=== PATIENT | male | born 1955 | race Caucasian/White ===

== ENCOUNTER → 2018-05-29 | Day surgery (SDC) | payer OTHER ==
[~2018-05-29] MED LIST: ACTOS PO; AMLODIPINE-BEN1 EAC4 PO; ASPIR 8181 MG PO; ATORVASTATIN CA20 MG PO; FENTANYL CITRATE/PF 100MCG/2 ML INJ ONE; FLUOXETINE HCL20 MG PO; HYOSCYAMINE SULFATE 0.5 MG/ML INJ ONE; INSULIN REGULAR, HUMAN 100 UNIT/1 ML 3ML VIAL ONE; MIDAZOLAM HCL 2 MG/2 ML VIAL ONE; PROPOFOL IV EMULSION 10 MG/ML 50 ML VIAL ONE; XIGDUO PO
--- OUTSIDE RECORDS SUMMARY | 2018-05-29 06:14 | XMS REPORT | Encounter Summary ---
Author Organization Unknown Address [address] [place] [address] Phone [phone] Care Team Providers Care Injection Molding Operator Name Role Phone Ferdinand Ko MD 3 [phone] Reason for Visit Bilateral Medical Complaint Instructions 1. Allergic conjunctivitis adenovirus Ag, Immunoassay azelastine 0.05 % eye drops 2. Type 2 diabetes mellitus without complication type 2 diabetes: care instructions 3. Essential hypertension high blood pressure: care instructions 4. Hyperlipidemia high cholesterol: care instructions 5. Body mass index 30+ - obesity Discussion Note Pt is in NAD; Verbalizes understanding of all instructions with no questions at this time. Plan of Care Patient Instructions Proper hand hygiene after contact with eyes, do not share pillows/clothing. Do not not wear any contacts and or makeup for the next 7 days. Use a different tissue to clean each eye. I recommend hand washing. Use eye drops (azelastine 0.05 %) as directed Take medications as prescribed. Follow up with your PCP or cloth napping supervisor within 2-3 days if symptoms worsen as discussed. Report to ER in case of emergency, sharp eye pain or vision loss.Recommend monitor BP and blood sugars at home and document, bring BP and blood sugar log to PCP for review. Recommend follow a low sodium/fat and carb diet and exercise 30-45 mins/d 3-4 days a week. Reminders Provider Appointments None recorded. Lab Adenovirus Ag, Immunoassay 09/23/2017 [facility] Referral None recorded. Procedures None recorded. Surgeries None recorded. Imaging None recorded. Medications Name Start Date amlodipine 5 mg-benazepril 40 mg capsule atorvastatin 20 mg tablet azelastine 0.05 % eye drops INSTILL 1 DROP INTO AFFECTED EYE(S) BY OPHTHALMIC ROUTE 2 TIMES PER DAY PRN WATERY DRAINAGE/ITCHING/IRRITATION. Flucelvax Quad 9288-3194 (PF) 60 mcg (15 mcg x 4)/0.5 mL IM syringe TO BE ADMINISTERED BY PHARMACIST FOR IMMUNIZATION fluoxetine 20 mg tablet OneTouch Verio strips pioglitazone 30 mg tablet Xigduo XR 5 mg-1,000 mg tablet,extended release Medications Administered None recorded. Vitals Height Weight BMI Blood Pressure 6 ft 238 lbs 32.3 kg/m2 120/78 mm[Hg] Lab Results Date Name Specimen Result Interpretation Description Value Range Status Address Adenovirus Ag, Immunoassay Result negative [facility]: [address] [place] [address] Swab Location Left Conjunctiva [facility]: [address] [place] [address] Allergies Code Code System Name Reaction Severity Status Onset NKDA Problems Name Status Onset Date Source Type 2 Diabetes Mellitus without Complication Active 09/23/2017 Hyperlipidemia Active 09/23/2017 Body Mass Index 30+ - Obesity Active 09/23/2017 Allergic Conjunctivitis Active 09/23/2017 Essential Hypertension Active 09/23/2017 Procedures Date Name Performed by Hernia Repair W/mesh Information not available Cholecystectomy Information not available Appendectomy Information not available Vaccine List Vaccine Type influenza, unspecified formulation 03/26/2017 Tdap 07/04/2012 Social History Smoking Status Never Smoker Past Encounters 09/23/2017 Allergic Conjunctivitis; Type 2 Diabetes Mellitus without Complication; Essential Hypertension; Hyperlipidemia; Body Mass Index 30+ - Obesity 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 History of Present Illness Eye Complaint Reported By: Patient HPI: Location: bilateral. Severity: no pain. Duration ; B/L eye injected, irritated and itchy x 2 days and watery drainage and matting x 2 weeks. Onset/Timing: first episode, gradual onset. Context no previous history of Iritis, no previous history of recurrent corneal erosion, no one else with similar symptoms. Modifying factors nothing gives relief. Associated Symptoms: vision intact, no sensitivity to light, no foreign body sensation in eyes, no pain in the eyes, no pain with eye movement, no headache, no fever/chills, no muscle aches, watery discharge from the eyes; B/L eye injected, irritated and itchy Review of Systems:ROS as noted in the HPI Review of Systems Basic Reported By: Patient Physical Exam Adult Basic, Adult Male Complete Reported By: Patient Constitutional: General Appearance: obese. Level of Distress: NAD Psychiatric: Mental Status: active and alert. Orientation: to time, to place, to person Eyes: Lids and Conjunctivae: injected, discharge. Pupils: PERRLA. Corneas: grossly intact. Vision: peripheral vision grossly intact, distance acuity: left, uncorrected: 20/30, distance acuity: right, uncorrected: 20/30 [facility]-P[facility]-Icgug-Throat: Ears: no lesions on external ear, no outer ear tenderness, EACs clear, TMs clear. Nose: no lesions on external nose, nares patent, no septal deviation, nasal passages clear, no sinus tenderness, no nasal discharge. Lips, Teeth, and Gums: no mouth or lip ulcers, no bleeding gums, normal dentition. Oropharynx: moist mucous membranes, no erythema, no exudates, tonsils not enlarged Neck: Lymph Nodes: no cervical LAD. Thyroid: no enlargement Lungs: Respiratory effort: no tachypnea Cardiovascular: Heart Auscultation: no murmurs Skin: Inspection and palpation: no rash
--- OUTSIDE RECORDS SUMMARY | 2018-05-29 06:14 | XMS REPORT | Continuity of Care Document ---
Author Author [facility] Interface Address Unknown Phone Unavailable Problems Problem Status Onset Date Classification Date Reported Comments Source Feeling feverish 11/18/2017 Diagnosis 11/18/2017 [facility] Acute upper respiratory infection 11/18/2017 Diagnosis 11/18/2017 [facility] Acute sinusitis 11/18/2017 Diagnosis 11/18/2017 [facility] Body mass index 30+ - obesity 11/18/2017 Diagnosis 11/18/2017 [facility] Essential hypertension 09/23/2017 Diagnosis 09/23/2017 [facility] Type 2 diabetes mellitus without complication 09/23/2017 Diagnosis 09/23/2017 [facility] Allergic conjunctivitis 09/23/2017 Diagnosis 09/23/2017 [facility] Type 2 Diabetes Mellitus without Complication 09/23/2017 Problem 11/18/2017 [facility] Hyperlipidemia 09/23/2017 Problem 11/18/2017 [facility] Body Mass Index 30+ - Obesity 09/23/2017 Problem 11/18/2017 [facility] Allergic Conjunctivitis 09/23/2017 Problem 11/18/2017 [facility] Essential Hypertension 09/23/2017 Problem 11/18/2017 [facility] Medications Medication Details Route Status Patient Instructions Ordering Provider Order Date Source Amlodipine 5 MG / Benazepril hydrochloride 40 MG Oral Capsule amlodipine 5 mg-benazepril 40 mg capsule Active [facility] atorvastatin 20 MG Oral Tablet atorvastatin 20 mg tablet Active [facility] Azelastine hydrochloride 0.5 MG/ML Ophthalmic Solution azelastine 0.05 % eye drops INSTILL 1 DROP INTO AFFECTED EYE(S) TWICE A DAY NEEDED FOR WATERY DRAINAGE, ITCHING,OR IRRITATION Active [facility] 0.5 ML influenza A virus A/[place] (H1N1) antigen 0.03 MG/ML / influenza A virus A/ (H3N2) antigen 0.03 MG/ML / influenza B virus B/[place] antigen 0.03 MG/ML / influenza B virus B/ antigen 0.03 MG/ML Prefilled Syringe [Flucelvax Quadrivalent 8785-3234] Flucelvax Quad 7566-1185 (PF) 60 mcg (15 mcg x 4)/0.5 mL IM syringe TO BE ADMINISTERED BY PHARMACIST FOR IMMUNIZATION Active [facility] Fluoxetine 20 MG Oral Tablet fluoxetine 20 mg tablet Active [facility] OneTouch Verio strips OneTouch Verio strips Active [facility] pioglitazone 30 MG Oral Tablet pioglitazone 30 mg tablet Active [facility] 24 HR dapagliflozin 5 MG / Metformin hydrochloride 1000 MG Extended Release Oral Tablet [Xigduo] Xigduo XR 5 mg-1,000 mg tablet,extended release Active [facility] Amoxicillin 875 MG / Clavulanate 125 MG Oral Tablet [Augmentin] Augmentin 875 mg-125 mg tablet Take 1 tablet every 12 hours by oral route for 7 days. Active [facility] Fluticasone propionate 0.05 MG/ACTUAT Metered Dose Nasal Rufe fluticasone 50 mcg/actuation nasal spray,suspension Rufe 1 spray twice a day by intranasal route for 14 days. Active [facility] Sulfacetamide Sodium 100 MG/ML Ophthalmic Solution sulfacetamide sodium 10 % eye drops Active [facility] benzonatate 100 MG Oral Capsule [Tessalon Perles] Tessalon Perles 100 mg capsule Take 1 capsule 3 times a day by oral route as needed. Active [facility] Allergies, Adverse Reactions, Alerts Substance Category Reaction Severity Reaction type Status Date Reported Comments Source Immunizations Immunization Date Given Site Status Last Updated Comments Source influenza, unspecified formulation 03/26/2017 completed [facility] Tdap 07/04/2012 completed [facility] Results Order Name Results Value Reference Range Date Interpretation Comments Source RESULT negative 11/18/2017 [facility] SWAB LOCATION Left and Right tonsillar pillars 11/18/2017 [facility] Influenza A negative 11/18/2017 [facility] Influenza B negative 11/18/2017 [facility] Adenovirus Ag [Presence] in Unspecified specimen by Immunoassay RESULT negative 09/23/2017 [facility] Adenovirus Ag [Presence] in Unspecified specimen by Immunoassay SWAB LOCATION Left Conjunctiva 09/23/2017 [facility] Vital Signs Vital Sign Value Date Comments Source Diastolic (mm Hg) 82 11/18/2017 [facility] Height 72 11/18/2017 [facility] Systolic (mm Hg) 118 11/18/2017 [facility] Weight 225 11/18/2017 [facility] Diastolic (mm Hg) 78 09/23/2017 [facility] Height 72 09/23/2017 [facility] Systolic (mm Hg) 120 09/23/2017 [facility] Weight 238 09/23/2017 [facility] Encounters Location Location Details Encounter Type Encounter Number Reason For Visit Attending Provider ADM Date DC Date Status Source [place] - [facility] - [id number] [facility]: [address] [place] [address], Ph. [id number] Natasha Hand 09/23/2017 [facility] [place] - [facility] [id number]: [address] [place] [address], Ph. [id number] Anahy Leyva 11/18/2017 [facility] Procedures Procedure Code Date Perfomer Comments Source Hernia Repair W/mesh [id number] [facility] Cholecystectomy [facility] Appendectomy [facility]
--- OUTSIDE RECORDS SUMMARY | 2018-05-29 06:14 | XMS REPORT | Encounter Summary ---
Author Organization Unknown Address [address] [place] [address] Phone [phone] Care Team Providers Care Electric Motor Repairer Name Role Phone Ferdinand Ko MD 3 [phone] Reason for Visit Medical Complaint Instructions 1. Acute sinusitis sinusitis: care instructions fluticasone 50 mcg/actuation nasal spray,suspension Augmentin 875 mg-125 mg tablet 2. Acute upper respiratory infection upper respiratory infection (cold): care instructions Tessalon Perles 100 mg capsule rapid strep group A, throat 3. Feeling feverish rapid flu (A+B) 4. Body mass index 30+ - obesity A healthy lifestyle: care instructions Discussion Note: None recorded. Plan of Care Patient Instructions See care instructions provided. Reminders Provider Appointments None recorded. Lab Rapid Flu (A+B) 11/18/2017 [facility] Rapid Strep Group a, Throat 11/18/2017 [facility] Referral None recorded. Procedures None recorded. Surgeries None recorded. Imaging None recorded. Medications Name Start Date amlodipine 5 mg-benazepril 40 mg capsule atorvastatin 20 mg tablet Augmentin 875 mg-125 mg tablet Take 1 tablet every 12 hours by oral route for 7 days. azelastine 0.05 % eye drops INSTILL 1 DROP INTO AFFECTED EYE(S) TWICE A DAY NEEDED FOR WATERY DRAINAGE, ITCHING,OR IRRITATION Flucelvax Quad 8819-7282 (PF) 60 mcg (15 mcg x 4)/0.5 mL IM syringe TO BE ADMINISTERED BY PHARMACIST FOR IMMUNIZATION fluoxetine 20 mg tablet fluticasone 50 mcg/actuation nasal spray,suspension [place] 1 spray twice a day by intranasal route for 14 days. OneTouch Verio strips pioglitazone 30 mg tablet sulfacetamide sodium 10 % eye drops Tessalon Perles 100 mg capsule Take 1 capsule 3 times a day by oral route as needed. Xigduo XR 5 mg-1,000 mg tablet,extended release Medications Administered None recorded. Vitals Height Weight BMI Blood Pressure 6 ft 225 lbs 30.5 kg/m2 118/82 mm[Hg] Lab Results Date Name Specimen Result Interpretation Description Value Range Status Address Rapid Strep Group a, Throat Result negative [facility]: [facility] Swab Location Left and Right tonsillar pillars [facility]: [facility] Rapid Flu (A+B) Influenza a negative [facility]: [facility] Influenza B negative [facility]: [facility] Allergies Code Code System Name Reaction Severity [...] History Smoking Status Never Smoker Past Encounters 11/18/2017 Acute Sinusitis; Acute Upper Respiratory Infection; Feeling Feverish; Body Mass Index 30+ - Obesity [facility]: [address] [place] [address], Ph. History of Present Illness [id number]-Mefkluj Reported By: Patient HPI: Location: head/sinuses. Quality: productive cough, sore throat, colored phlegm, nasal/sinus congestion. Duration: days. Context: no sick contacts, no foreign travel, non-smoker. Modifying factors: OTC medication; sulfacetamide eye drops prescribed by tele doc for conjunctivitis. Associated Symptoms: no shortness of breath, no wheezing, no change in number of pillows needed to sleep at night, no sweats, no significant weight gain, no significant weight loss, no morning cough, no sore throat, no vomiting, no diarrhea, no rash, no nausea, no fever, no muscle aches, no headache, yellow sputum, fever Review of Systems:ROS as noted in the HPI Review of Systems Basic Reported By: Patient Physical Exam Adult Basic, Adult Male Complete Reported By: Patient Constitutional: General Appearance: healthy-appearing, well-nourished, well-developed. Level of Distress: NAD. Ambulation: ambulating normally Psychiatric: Mental Status: active and alert. Orientation: to time, to place, to person Eyes: Lids and Conjunctivae: non-injected, no discharge, no pallor Zzw-Lmva-Rseud-Throat: Ears: no lesions on external ear, no outer ear tenderness, EACs clear, TM opacified, middle ear fluid. Hearing: no hearing loss. Nose: no lesions on external nose, no septal deviation, nasal obstruction, sinus tenderness, nasal discharge, nasal discharge--purulent. Lips, Teeth, and Gums: no mouth or lip ulcers, no bleeding gums, normal dentition. Oropharynx: moist mucous membranes, no exudates, tonsils not enlarged, erythema Lungs: Respiratory effort: no dyspnea, no tachypnea, no use of accessory muscles, no intercostal retractions. Auscultation: breath sounds normal Cardiovascular: Heart Auscultation: RRR, no murmurs
[2018-05-29 11:30] VITALS: BP 125/90
--- NOTE | 2018-05-29 15:09 | Operative Report ---
DATE OF PROCEDURE: May 29, 2018 REFERRING PHYSICIAN: Dr. Ferdinand Ko PROCEDURE PERFORMED: Colonoscopy and polypectomy. INDICATIONS FOR COLONOSCOPY: Surveillance colonoscopy. History of colon polyps. MEDICATION: Patient was done under MAC. Please see anesthesiologist's note. PROCEDURE: With the patient in the left lateral decubitus position, the flexible fiberoptic Olympus colonoscope was inserted into the rectum with ease and advanced all the way to the cecum. Mucosa overlying the cecum appeared to be within normal limits. One polyp was hot biopsied from the proximal ascending colon. The rest of the ascending, transverse and descending appeared to be within normal limits. One polyp was snared from the sigmoid colon. The rest of the sigmoid colon appeared to be within normal limits. Two polyps were hot biopsied from the rectum. The scope was then retroflexed into the distal rectum, and small internal hemorrhoids were noted, none of which was actively bleeding. The scope was then straightened out. It was subsequently withdrawn. Patient tolerated the procedure well. IMPRESSION 1. Ascending colon polyp, hot biopsied. 2. Sigmoid colon polyp, snared. 3. Rectal polyps times 2, hot biopsied. 4. Internal hemorrhoids, none actively bleeding. PLAN: Follow up histology. Initiate high-fiber, low-fat diet. Initiate high-fiber supplement. Patient will need a followup colonoscopy in 3 years. Job#: [id number] cc:FERDINAND KO MD
== END | disposition home or self-care (01) ==
LOC: ENDO 06:12
PROVIDERS: ATTEND Internal Medicine Gastroenterology
DX: Z09 Encounter for follow-up examination after completed treatment for conditions other than malignant neoplasm (principal); D12.5 Benign neoplasm of sigmoid colon; K62.1 Rectal polyp; K64.8 Other hemorrhoids; I10 Essential (primary) hypertension; E78.5 Hyperlipidemia, unspecified; E11.9 Type 2 diabetes mellitus without complications; Z01.810 Encounter for preprocedural cardiovascular examination; Z79.82 Long term (current) use of aspirin; Z79.84 Long term (current) use of oral hypoglycemic drugs; Z68.31 Body mass index [BMI] 31.0-31.9, adult
CPT/HCPCS: 36415; 45384; 45385; 82948; 93005; J1980; J2250; 45378

== ENCOUNTER → 2020-06-04 | Day surgery (SDC) | payer MEDICARE, OTHER ==
[2020-05-30 12:05] LABS: BASOPHILS # (AUTO) 0.1 (0.0-0.1); BASOPHILS % 0.8 % (0.0-1.0); EOSINOPHILS # (AUTO) 0.2 (0.0-0.4); EOSINOPHILS % 2.6 % (0.0-6.0); HEMOGLOBIN 15.3 g/dL (14.0-18.0); LYMPHOCYTES % 38.8 % (18.0-39.1); MEAN CORPUSCULAR HEMOGLOBIN 29.7 pg (28-32); MEAN CORPUSCULAR HGB CONC 32.6 g/dL (31-35); MEAN CORPUSCULAR VOLUME 91.1 fL (81-99); MONOCYTES # (AUTO) 0.8 (0.2-0.8); MONOCYTES % 9.7 % (4.4-11.3); NEUTROPHILS # (AUTO) 3.7 (2.1-6.9); NEUTROPHILS % 47.7 % (38.7-80.0); PLATELET COUNT 222 x10e3/uL (140-360); RED BLOOD COUNT 5.16 x10e6/uL (4.3-5.7); RED CELL DISTRIBUTION WIDTH 13.2 % (11.7-14.4)
[2020-05-30 12:30] LABS: ALANINE AMINOTRANSFERASE 31 IU/L (0-55); ALBUMIN 4.2 g/dL (3.5-5.0); ALBUMIN/GLOBULIN RATIO 1.5 (0.8-2.0); ALKALINE PHOSPHATASE 39 IU/L (40-150); ANION GAP 17.6 mmol/L (8-16); BLOOD UREA NITROGEN 13 mg/dL (7-26); BUN/CREATININE RATIO 11 (6-25); CALCIUM 9.1 mg/dL (8.4-10.2); CARBON DIOXIDE 25 mmol/L (22-29); CHLORIDE 104 mmol/L (98-107); CREATININE, SERUM 1.14 mg/dL (0.72-1.25); EST GLOMERULAR FILTRATION RATE > 60 ML/MIN (60-); GLUCOSE 140 mg/dL (74-118); POTASSIUM 4.6 mmol/L (3.5-5.1); SODIUM 142 mmol/L (136-145)
[2020-06-04] VITALS (13 sets, daily range): BP systolic 114–158; BP diastolic 70–82
[~2020-06-04] VITALS: Ht 182.9 cm; Wt 103.4 kg
[~2020-06-04] MED LIST changes: +ALPRAZOLAM 0.5 MG TAB ONE; +ASPIRIN 325 MG TAB ONE; +BIVALRIUDIN 250 MG/VIAL VIAL IV ONE; +DIPHENHYDRAMINE HCL 25 MG CAP ONE; +HEPARIN SOD/SOD CHLORIDE 2,000 ML ONE; -HYOSCYAMINE SULFATE 0.5 MG/ML INJ ONE; -INSULIN REGULAR, HUMAN 100 UNIT/1 ML 3ML VIAL ONE; +IOPAMIDOL 370 MG/ML 200 ML INFUS..BTL INJ ONE; +LIDOCAINE HCL 2% LOCAL 20 ML VIAL ONE; +PIOGLITAZONE HC45 MG PO; +PRASUGREL 10 MG TAB ONE; -PROPOFOL IV EMULSION 10 MG/ML 50 ML VIAL ONE; +SODIUM CHLORIDE 0.9% 1000ML 1,000 ML ONE; +SODIUM CHLORIDE 0.9% 50ML 50 ML ONE; +VERAPAMIL HCL 2.5 MG/ML 2 ML VIAL ONE; +VITAMIN B-121000 MCG PO; +VITAMIN D3 PO; +XIGDUO XR 5 MG1 EAC1 PO
--- NOTE | 2020-06-04 13:13 | NUR ---
1313p Report form Josefina SLATER to #[id number]. Identiferx2. Alert oriented and appropriate, PERRLA, respirations even and unlabored to room air. Pulses x4 extremities equal and palpable . Cap fill brisk < 3 sec. + neurovascular function of right wrist/hand w/ TR Band present. No s/s of swelling or discolor at site. VS trend reviewed and medications given. TR band down at 1500pm at bedside.Dc home scheduled 1800pm. Skin warm and dry integrity appears intact in general. IV left hand presents healthy left forearm Angiomax till completed. w/o s/s of infiltration or complaint. Abdomen soft and supple. pt offered toileting, denies need to urinate or defecate. Resting with HOB elevated approx 30o. Personal affects with patient. Pt verbalizes understanding of POC. Educated training consultant light use. bed low and locked, side rails up x2 and call light at sie Reattched to monitor NSR,no active CP or SOB. Pt using personal mask for COVID-19 mitigation. transfer of care -ds/rn
--- NOTE | 2020-06-04 15:00 | NUR ---
1500p RADIAL Compression removal: Initial Cuff volume 13cc 1500p -3 cc Removed No hematoma/bleeding noted with normal neurovascular function. 1515 -5cc Removed No hematoma/ bleeding noted with normal neurovascular function. 1530 -5cc Removed No hematoma/bleeding noted with normal neurovascular function. Air removal completed. Stasis achieved sterile 2x2,Tegaderm, Coban dressing No hematoma, bleeding noted with normal neurovascular function. Pt instructed on POC. Ds/Rn
--- NOTE | 2020-06-04 17:59 | NUR ---
1800p pt meets discharge criteria. VS wnl, alert and oriented. Pt and Family Understands discharge instruction. Overall general assess w/o gross outliers. Skin warm, dry, and intact. Right radial dressing soft w/o s/s of hematoma. + neurovascular function of right hand present. IV removed and appears distal tip is intact, Jasmin RN,staff member verifying. Pt maintains mask on for COVID 19 precautions being taken by wheel chair to awaiting car. Transfers w/o gross distress with discharge paperwork in hand.-ds/rn
--- NOTE | 2020-06-05 09:41 | Operative Report ---
DATE OF PROCEDURE: 06/04/2020 SURGEON: Mark Rendon MD INDICATIONS: Coronary artery disease, angina, and abnormal stress test. PROCEDURES PERFORMED: 1. Ultrasound-guided access in the right radial artery with sheath placement. 2. Left heart catheterization, selective coronary angiography. 3. Conscious sedation, 65 minutes. 4. Stent placement to the proximal circumflex artery. 5. Deployment of right wrist TR band. COMPLICATIONS: None. BLOOD LOSS: Minimal. RECOMMENDATIONS: Dual antiplatelet therapy for at least 6 months. DESCRIPTION OF PROCEDURE: Access was obtained in the right radial artery using ultrasound guidance. A 5-Arabic sheath was placed. Coronary angiography demonstrated patent left main, left anterior descending artery, moderate 30% to 50% diffuse luminal irregularities. Right coronary artery had similar disease. Proximal circumflex 80%, mid circumflex 50% stenosis. LV end-diastolic pressure of 18. No gradient across the aortic valve on pullback. A decision was made to intervene on the left circumflex artery. The patient received intravenous Angiomax and oral prasugrel and aspirin for anticoagulation. The left main was cannulated using ERAD 5-Arabic guiding catheter. Short Runthrough wire was advanced for support. Primary stent in the proximal circumflex artery. A 3.0 x 12 Resolute Jonny deployed at 16 atmospheres. Excellent end result. Less than 10% residual stenosis. SIXTO-3 flow. No complications. Wire and guide sheath removed. The patient discharged home. MD BRANDON Anderson/MODL /[id number]
== END | disposition home or self-care (01) ==
LOC: CATH LAB 10:42
PROVIDERS: ATTEND Internal Medicine Interventional Cardiology
DX: I25.10 Atherosclerotic heart disease of native coronary artery without angina pectoris (principal); Z01.812 Encounter for preprocedural laboratory examination; Z20.828 Contact with and (suspected) exposure to other viral communicable diseases; E11.9 Type 2 diabetes mellitus without complications; I10 Essential (primary) hypertension; E78.00 Pure hypercholesterolemia, unspecified; Z90.49 Acquired absence of other specified parts of digestive tract
CPT/HCPCS: 76937; 93458; C9600; 36415; 80053; 82948; 85025; 92928; 99152; 99153; C1769; C1876; C1887; J0583; J2001; J2250; J3010; J7030; Q9967; U0002

== ENCOUNTER 2020-06-06 21:09 | Emergency (ER) | payer MEDICARE ==
[~2020-06-06] VITALS: Ht 182.9 cm; Wt 103.4 kg
[~2020-06-06 21:09] MED LIST changes: -ALPRAZOLAM 0.5 MG TAB ONE; -ASPIRIN 325 MG TAB ONE; -BIVALRIUDIN 250 MG/VIAL VIAL IV ONE; -DIPHENHYDRAMINE HCL 25 MG CAP ONE; -FENTANYL CITRATE/PF 100MCG/2 ML INJ ONE; -HEPARIN SOD/SOD CHLORIDE 2,000 ML ONE; -IOPAMIDOL 370 MG/ML 200 ML INFUS..BTL INJ ONE; -LIDOCAINE HCL 2% LOCAL 20 ML VIAL ONE; -MIDAZOLAM HCL 2 MG/2 ML VIAL ONE; -PRASUGREL 10 MG TAB ONE; -SODIUM CHLORIDE 0.9% 1000ML 1,000 ML ONE; -SODIUM CHLORIDE 0.9% 50ML 50 ML ONE; -VERAPAMIL HCL 2.5 MG/ML 2 ML VIAL ONE
--- OUTSIDE RECORDS SUMMARY | 2020-06-06 21:19 | XMS REPORT | Continuity of Care Document ---
Author Author Jeannine [employer] MT[employer]or Address Unknown Phone Unavailable Care Team Providers Care Student Life Coordinator Name Role Phone [employer] Unavailable Un available Problems Problem Status Onset Date Classification Date Reported Comments Source Acute sinusitis (disorder) Res olved Problem 10/2018 [facility] Benign prostatic hyperplasia (disorder) Resolved Problem 02/04/2019 [facility] Cholecystitis (disorder) Resol angy Problem 10/2018 [facility] Diabetes mellitus (disorder) R esolved Problem 10/2018 [facility] Diabetes mellitus type 2 (disorder) Resolved Problem 10/2018 [facility] Disease of male genital organ (disorder) Resolved Problem 02/04/2019 [facility] Hypercholesterolemia (disorder) Resolved Problem 10/2018 [facility] Hypertensive disorder, systemic arterial (disorder) Resolved Problem 02/04/2019 [facility] Simple obesity (disorder) Acti ve Problem 10/2018 [facility] Urinary bladder stone (disorder) Resolved Problem 10/2018 [facility] Medications Medication Details Route Status Patient Instructions Ordering Provider Order Date Source 24 HR mirabegron 25 MG Extended Release Tablet [Myrbetriq] 25 mg = 1 tab, PO, Daily, # 30 tab, 0 Re fill(s), Pharmacy: [place] [id number] [facility] Active 02/01/2019 [facility] Amlodipine 5 MG / atorvastatin 40 MG Oral Tablet 1 tab, PO, Bedtime, # 90 tab, 0 Refill(s) Active 01/22/2019 [facility] B-12 1000 mcg oral tablet 1,00 0 microgram = 1 tab, PO, Daily, 0 Refill(s) Active 01/22/2019 [facility] pioglitazone 30 mg oral tablet 30 mg = 1 tab, PO, Daily, # 30 tab, 1 Refill(s) Active 01/22/2019 [facility] Vitamin D3 2000 intl units oral capsule 2,000 IntlUnit = 1 cap, PO, Daily, # 100 cap, 3 Refill(s) Active 01/22/2019 [facility] Aspirin 81 MG Enteric Coated Tablet 81 mg = 1 tab, PO, Daily, # 90 tab, 3 Refill(s) Active 01/22/2019 [facility] 24 HR dapagliflozin 5 MG / Metformin hyd rochloride 1000 MG Extended Release Oral Tablet [Xigduo] 1 tab, PO, QAM, 0 Refill(s) Active 01/22/2019 [facility] FLUoxetine 20 mg oral tablet 2 0 mg = 1 tab, PO, Daily, # 90 tab, 0 Refill(s) Active 01/22/2019 [facility] atorvastatin 20 mg oral tablet 20 mg = 1 tab, PO, Bedtime, # 90 tab, 1 Refill(s) Active 01/22/2019 [facility] Allergies, Adverse Reactions, Alerts Substance Category Reaction Severity Reaction type Status Date Reported Comments Source No Known Medication Allergies Assertion Drug aller gy [facility] Immunizations No Data Provided for This Section Results Order Name Results Value Reference Range Date Interpretation Comments Source URINE AND STOOL POC UA LeukEst Negative *NA* (02/01/19 10:53 AM) Negative 02/01/2019 [facility] URINE AND STOOL POC UA Uro 0.2 0.1 - 1.0 02/01/2019 [facility] URINE AND STOOL POC UA Nit Negative *NA* (02/01/19 10:53 AM) Negative 02/01/2019 [facility] URINE AND STOOL POC UA Prot Negative mg/dL Negative mg/dL 02/01/2019 [facility] URINE AND STOOL POC UA Glu >=1000 mg/dL Negative mg/dL 02/01/2019 [facility] URINE AND STOOL POC UA Ket Negative mg/dL Negative mg/dL 02/01/2019 [facility] URINE AND STOOL POC UA Bld Negative *NA* (02/01/19 10:53 AM) Negative 02/01/2019 [facility] URINE AND STOOL POC UA Bili Negative *NA* (02/01/19 10:53 AM) Negative 02/01/2019 [facility] URINE AND STOOL POC UA Color Yellow *NA* (02/01/19 10:53 AM) Yellow 02/01/2019 [facility] URINE AND STOOL POC UA Turbidity Clear *NA* (02/01/19 10:53 AM) Clear 02/01/2019 [facility] URINE AND STOOL POC UA pH 5.0 5.0 - 8.0 02/01/2019 [facility] URINE AND STOOL POC UA SG 1.015 <=1.030 02/01/2019 [facility] URINE AND STOOL POC UA pH 5.0 5.0 - 8.0 01/22/2019 [facility] URINE AND STOOL POC UA SG 1.010 <=1.030 01/22/2019 [facility] URINE AND STOOL POC UA Ket Negative mg/dL Negative mg/dL 01/22/2019 [facility] URINE AND STOOL POC UA Prot Negative mg/dL Negative mg/dL 01/22/2019 [facility] URINE AND STOOL POC UA Bili Negative *NA* (01/22/19 10:45 AM) Negative 01/22/2019 [facility] URINE AND STOOL POC UA Glu >=1000 mg/dL Negative mg/dL 01/22/2019 [facility] URINE AND STOOL POC UA Color Yellow *NA* (01/22/19 10:45 AM) Yellow 01/22/2019 [facility] URINE AND STOOL POC UA Turbidity Clear *NA* (01/22/19 10:45 AM) Clear 01/22/2019 [facility] URINE AND STOOL POC UA Bld Trace *NA* (01/22/19 10:45 AM) Negative 01/22/2019 [facility] URINE AND STOOL POC UA Nit Negative *NA* (01/22/19 10:45 AM) Negative 01/22/2019 [facility] URINE AND STOOL POC UA Uro 0.2 0.1 - 1.0 01/22/2019 [facility] URINE AND STOOL POC UA LeukEst Negative *NA* (01/22/19 10:45 AM) Negative 01/22/2019 [facility] Pathology Reports No Data Provided for This Section Diagnostic Reports No Data Provided for This Section Consultation Notes No Data Provided for This Section Discharge Summaries No Data Provided for This Section History and Physicals No Data Provided for This Section Vital Signs Vital Sign Value Date Comments Source Weight 102.955 02/01/2019 [facility] BMI Calculated 33.52 02/01/2019 [facility] Height 175.26 cm 02/01/2019 [facility] Weight 102.955 01/22/2019 [facility] BMI Calculated 30.78 01/22/2019 [facility] Height 182.88 cm 01/22/2019 [facility] Encounters Location Location Details Encounter Type Encounter Number Reason For Visit Attending Provider ADM Date DC Date Status Source Outpatient [id number] Torrey Taylor 01/22/2019 Active [facility] [place] [facility] [id number] [facility] 01/22/2019 01/23/2019 [facility] [id number] [facility] 02/01/2019 Active [facility] Outpatient [id number] [facility] 02/01/2019 02/02/2019 [facility] Outpatient [id number] MED_ASST VISIT 03/06/2019 Active [facility] Outpatient [id number] [facility] 03/12/2019 Active [facility] Outpatient [id number] Torrey [facility] 06/11/2019 [facility] Procedures Procedure Code Date Perfomer Comments Source Cystourethroscopy (separate procedure) 17107 02/01/2019 [facility] Cystoscopy [id number] 02/11/2015 [facility] Cholecystectomy [id number] 07/04/1993 [facility] Bilateral inguinal hernia repair [id number] 07/04/1988 [facility] Appendectomy [id number] 07/04/1960 [facility] Tonsillectomy [id number] 07/04/1959 [facility] Assessment and Plan No Data Provided for This Section Plan of Care No Data Provided for This Section Social History Social History Date Source Social History TypeResponse Smoking Status Former smoker; Exposure to Tobacco Smoke None; Cigarette Smoking Last 365 Days No; Reg Smoking Cessation Counseling No; Started at age: [age]; Stopped at age: 19; entered on: 02/01/19 02/01/2019 [facility] Family History No Data Provided for This Section Advance Directives No Data Provided for This Section Functional Status No Data Provided for This Section
--- OUTSIDE RECORDS SUMMARY | 2020-06-06 21:19 | XMS REPORT | Continuity of Care Document ---
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 Name Role Phone Rodri Taylor Attphys Problems Condition Name Condition Details Condition Category Status Onset Date Resolution Date Last Treatment Date Treating Clinician Comments Source Acute sinusitis (disorder) Acu te sinusitis (disorder) Resolved Problem 02/04/2019 [facility] Problem Resolved 2019-02-04 00:40:51 Jeannine Au Benign prostatic hyperplasia (disorder) Benign prostatic hyperplasia (disorder) Resolved Problem 02/04/2019 [facility] Problem Resolved 2019-02-04 00:40:51 Agata Au Cholecystitis (disorder) Chol ecystitis (disorder) Resolved Problem 02/04/2019 [facility] Problem Resolved 201 03-11-04 00:40:51 Jeannine Au Diabetes mellitus (disorder) D iabetes mellitus (disorder) Resolved Problem 02/04/2019 [facility] Problem Resolved 2019-02-04 00:40:51 Jeannine Au Diabetes mellitus type 2 (disorder) Diabetes mellitus type 2 (disorder) Resolved Problem 02/04/2019 [facility] Problem Res olved 2019-02-04 00:40:51 Jeannine randolph Disease of male genital organ (disorder) Disease of male genital organ (disorder) Resolved Problem 02/04/2019 [facility] Problem Resolved 2019-02-04 00:40:51 Agata Au Hypercholesterolemia (disorder) Hypercholesterolemia (disorder) Resolved Problem 02/04/2019 [facility] Problem Resolved 2019-02-04 00:40:51 Jeannine Au Hypertensive disorder, systemic arterial (disorder) Hypertensive disorder, systemic arterial (disorder) Resolved Problem 02/04/2019 [facility] Problem Resolved 2019-02-04 00:40:51 Jeannine Au Urinary bladder stone (disorder) Urinary bladder stone (disorder) Resolved Problem 02/04/2019 [facility] Problem Resolved 2019-02-04 00:40:51 [facility] Simple obesity (disorder) Simp le obesity (disorder) Active Problem 02/04/2019 [facility] Problem Active 2019-02-04 00:40:51 [facility] Allergies, Adverse Reactions, Alerts Allergy Name Allergy Type Status Severity Reaction(s) Onset Date Inacti ve Date Treating Clinician Comments Source No Known Medication Allergies No Known Medication Allergies Active [facility] Social History Smoking Status Start Date Stop Date Source Social History 2019-02-01 15:57:55 2019-02-01 15:57:55 [facility] Medications Ordered Medication Name Filled Medication Name Start Date Stop Da te Current Medication? Ordering Clinician Indication Dosage Frequency Signature (SIG) Comments Components Source 24 HR mirabegron 25 MG Extended Release Tablet [Myrbetriq] 2019-02-01 16:10:00 Yes 25 mg = 1 tab, PO, Daily, # 30 tab, 0 Refill(s), Pharmacy: [facility] [id number] [facility] Amlodipine 5 MG / atorvastatin 40 MG Oral Tablet 2019-01-22 16:51:00 Yes 1 tab, PO, Bedtime, # 90 tab, 0 Refill(s) [facility] B-12 1000 mcg oral tablet 2019-01-22 16:51:00 Yes 1,000 microgram = 1 tab, PO, Daily, 0 Refill(s) [facility]isa[facility]ilio pioglitazone 30 mg oral tablet 2019-01-22 16:51:00 Yes 30 mg = 1 tab, PO, Daily, # 30 tab, 1 [facility] 2000 intl units oral capsule 2019-01-22 16:51:00 Yes 2,000 IntlUnit = 1 cap, PO, Daily, # 100 cap, 3 Refill(s) [facility] Aspirin 81 MG Enteric Coated Tablet 2019-01-22 16:51:00 Yes 81 mg = 1 tab, PO, Daily, # 90 tab, 3 Refill(s) [facility] 24 HR dapagliflozin 5 MG / Metformin hyd rochloride 1000 MG Extended Release Oral Tablet [Xigduo] 2019-01-22 16:51:00 Yes 1 tab, PO, QAM, 0 Refill(s) [facility] FLUoxetine 20 mg oral tablet 2019-01-22 16:51:00 Yes 20 mg = 1 tab, PO, Daily, # 90 tab, 0 Refill(s) Nikhil Au atorvastatin 20 mg oral tablet 2019-01-22 16:51:00 Yes 20 mg = 1 tab, PO, Bedtime, # 90 tab, 1 Refill(s) Jeannine Au Vital Signs Vital Name Observation Time Observation Value Comments Source Weight 2019-02-01 15:56:00 Jeannine Au BMI Calculated 2019-02-01 15:56:00 [facility] [place] Height 2019-02-01 15:56:00 175.26 cm [facility] [place] Weight 2019-01-22 15:16:00 [facility] [place] BMI Calculated 2019-01-22 15:16:00 [facility] [place] Height 2019-01-22 15:16:00 182.88 cm [facility] Procedures Procedure Date / Time Performed Performing Clinician [facility] Cystourethroscopy (separate procedure) 2019-02-01 16:10:00 [facility] [place] Cystoscopy 2015-02-11 05:00:00 [facility] Her randolph Cholecystectomy 1993-07-04 00:00:00 [facility] Her randolph Bilateral inguinal hernia repair 1988-07-04 00:00:00 [facility] [place] Appendectomy 1960-07-04 00:00:00 [facility] Her randolph Tonsillectomy 1959-07-04 00:00:00 [facility] Her randolph Encounters Start Date/Time End Date/Time [facility] Encounter ID Source 2019-03-06 09:40:00 2019-03-06 09:40:00 Outpatient [id number] 2019-02-01 11:00:00 2019-02-01 23:59:59 Outpatient Torrey Taylor [facility] [id number] 2019-01-22 10:00:00 2019-01-22 23:59:59 [id number] Results Test Description Test Time Test Comments Results Result Comments Source URINE AND STOOL 2019-02-01 15:53:00 Negative *NA*(02/01/19 1 0:53 AM) [facility] [place] URINE AND STOOL 2019-02-01 15:53:00 0.2 [facility] [place] URINE AND STOOL 2019-02-01 15:53:00 Negative *NA*(02/01/19 1 0:53 AM) [facility] URINE AND STOOL 2019-02-01 15:53:00 Negative *NA*(02/01/19 1 0:53 AM) [facility] URINE AND STOOL 2019-02-01 15:53:00 Negative *NA*(02/01/19 1 0:53 AM) [facility] URINE AND STOOL 2019-02-01 15:53:00 Yellow *NA*(02/01/19 10: 53 AM) [facility] URINE AND STOOL 2019-02-01 15:53:00 Clear *NA*(02/01/19 10:5 3 AM) [facility] [place] URINE AND STOOL 2019-02-01 15:53:00 Test Item POC UA pH (test code = POC UA pH) 5.0 1 5.0-8.0 [facility] [id number] 15:53:00* Test Item Value Reference Range Interpretation Comments POC UA SG (test code = POC UA SG) 1.015 1 [facility] [id number] 15:45:00* Test Item Value Reference Range Interpretation Comments POC UA pH (test code = POC UA pH) 5.0 1 5.0-8.0 [facility] [id number] 15:45:00* Test Item Value Reference Range Interpretation Comments POC UA SG (test code = POC UA SG) 1.010 1 [facility] [id number] 15:45:00Negative *NA*(01/22/19 10:45 AM)[facility] [id number] 15:45:00Yellow *NA*(01/22/19 10:45 AM)[facility] [id number] 15:45:00Clear *NA*(01/22/19 10:45 AM)[facility] [id number] 15:45:00Trace *NA*(01/22/19 10:45 AM)[facility] [id number] 15:45:00Negative *NA*(01/22/19 10:45 AM)[facility] [id number] 15:45:000.2[facility] [id number] 15:45:00Negative *NA*(01/22/19 10:45 AM)[facility]
--- NOTE | 2020-06-06 22:08 | Emergency Department Note ---
History of Present Illnes History of Present Illness Chief Complaint: Chest Pain History of Present Illness This is a 65 year old male PRESENTS TO THE ER C/O TACHYCARDIA AND ELEVATED BP ONSET THIS EVENING AROUND 1900; PT STATES HIS SBP WAS IN THE "150'S"; PT HAS CARDIAC CATH BY DR. CLARK ON 06/04/20; PT DENIES CP AT THIS TIME; NAD NOTED. Historian: Patient Arrival Mode: Car Onset (how long ago): hour(s) (2) Location: CHEST Quality: PALPITATIONS, ELEVATE BP Radiation: Reports non-radiation Severity: mild Onset quality: sudden Duration (how long): hour(s) (2) Timing of current episode: constant Progression: unchanged Chronicity: new Context: Reports recent surgery (HEART CATH WITH STEN 2 DAYS AGO); Denies recent illness Relieving factors: none Exacerbating factors: none Associated symptoms: Reports denies other symptoms Treatments prior to arrival: none Past Medical/Family History Physician Review I have reviewed the patient's past medical and family history. Any updates have been documented here. Past Medical History Recent Fever: No Clinical Suspicion of Infectio: No New/Unexplained Change in Ment: No Past Medical History: CAD Other Surgery: CARDAC STENT 06/04/20 Social History Smoking Cessation: Never Smoker Alcohol Use: None Any Illegal Drug Use: No Review of Systems Review of Systems Constitutional: Reports as per HPI EENTM: Reports no symptoms Cardiovascular: Reports no symptoms, Reports as per HPI Respiratory: Reports no symptoms Gastrointestinal: Reports no symptoms Genitourinary: Reports no symptoms Musculoskeletal: Reports no symptoms Integumentary: Reports no symptoms Neurological: Reports no symptoms Psychological: Reports no symptoms Endocrine: Reports no symptoms Hematological/Lymphatic: Reports no symptoms Physical Exam Related Data Allergies: Coded Allergies: No Known Allergies (Unverified , 05/24/18) Triage Vital Signs Vital Signs Date Time Temp Pulse Resp B/P (MAP) Pulse Ox O2 Delivery O2 Flow Rate FiO2 06/06/20 21:10 102 20 149/95 96 Room Air Vital signs reviewed: Yes Physical Exam CONSTITUTIONAL Constitutional: Present well-developed, Present well-nourished; Absent distressed HENT HENT: Present normocephalic, Present atraumatic, Present oropharynx clear/moist, Present nose normal HENT L/R: Present left ext ear normal, Present right ext ear normal EYES Eyes: Reports PERRL, Reports conjunctivae normal NECK Neck: Present ROM normal PULMONARY Pulmonary: Present effort normal, Present breath sounds normal CARDIOVASCULAR Cardiovascular: Present regular rhythm, Present heart sounds normal, Present capillary refill normal, Present tachycardia (104) GASTROINTESTINAL Abdominal: Present soft, Present nontender, Present bowel sounds normal GENITOURINARY Genitourinary: Present exam deferred SKIN Skin: Present warm, Present dry MUSCULOSKELETAL Musculoskeletal: Present ROM normal NEUROLOGICAL Neurological: Present alert, Present oriented x 3, Present no gross motor or sensory deficits PSYCHOLOGICAL Psychological: Present mood/affect normal, Present judgement normal Results Laboratory Laboratory Laboratory Tests Test 06/06/20 22:00 White Blood Count 9.97 x10e3/uL (4.8-10.8) Red Blood Count 5.30 x10e6/uL (4.3-5.7) Hemoglobin 15.7 g/dL (14.0-18.0) Hematocrit 47.7 % (38.2-49.6) Mean Corpuscular Volume 90.0 fL (81-99) Mean Corpuscular Hemoglobin 29.6 pg (28-32) Mean Corpuscular Hemoglobin Concent 32.9 g/dL (31-35) Red Cell Distribution Width 13.2 % (11.7-14.4) Platelet Count 220 x10e3/uL (140-360) Neutrophils (%) (Auto) 63.3 % (38.7-80.0) Lymphocytes (%) (Auto) 25.4 % (18.0-39.1) Monocytes (%) (Auto) 8.8 % (4.4-11.3) Eosinophils (%) (Auto) 1.5 % (0.0-6.0) Basophils (%) (Auto) 0.6 % (0.0-1.0) Neutrophils # (Auto) 6.3 (2.1-6.9) Lymphocytes # (Auto) 2.5 (1.0-3.2) Monocytes # (Auto) 0.9 (0.2-0.8) Eosinophils # (Auto) 0.2 (0.0-0.4) Basophils # (Auto) 0.1 (0.0-0.1) Absolute Immature Granulocyte (auto 0.04 x10e3/uL (0-0.1) Sodium Level 143 mmol/L (136-145) Potassium Level 4.1 mmol/L (3.5-5.1) Chloride Level 103 mmol/L (98-107) Carbon Dioxide Level 26 mmol/L (22-29) Anion Gap 18.1 mmol/L (8-16) Blood Urea Nitrogen 15 mg/dL (7-26) Creatinine 1.10 mg/dL (0.72-1.25) Estimat Glomerular Filtration Rate > 60 ML/MIN (60-) BUN/Creatinine Ratio 14 (6-25) Glucose Level 210 mg/dL (74-118) Calcium Level 9.7 mg/dL (8.4-10.2) Total Bilirubin 0.7 mg/dL (0.2-1.2) Aspartate Amino Transf (AST/SGOT) 18 IU/L (5-34) Alanine Aminotransferase (ALT/SGPT) 30 IU/L (0-55) Alkaline Phosphatase 50 IU/L (40-150) Creatine Kinase 74 IU/L (30-200) Creatine Kinase MB 1.80 ng/mL (0-5.0) Troponin I 0.048 ng/mL (0-0.300) Total Protein 7.2 g/dL (6.5-8.1) Albumin 4.3 g/dL (3.5-5.0) Globulin 2.9 g/dL (2.3-3.5) Albumin/Globulin Ratio 1.5 (0.8-2.0) Lab results reviewed: Yes Imaging Imaging results reviewed: Yes Impressions Procedure: [id number] CT/CT CHEST W Exam Date: 06/06/20 Exam Time: 2314 REPORT STATUS: Signed EXAM: CT Chest WITH contrast 06/06/2020 11:15 PM INDICATION: Tachycardia, elevated blood pressure ^PE PROTOCOL ^[id number] ^2315 ^Y COMPARISON: None TECHNIQUE: Chest was scanned utilizing a multidetector helical scanner from the lung apex through the level of the diaphragm after administration of IV contrast. Thin section reconstructions were obtained with special concentration on the pulmonary arteries. Coronal and sagittal reformations were obtained. Pulmonary embolism protocol was performed. IV CONTRAST: 100 mL of Isovue 370 COMPLICATIONS: None RADIATION DOSE: Total DLP: 611 mGy*cm Estimated effective dose: (DLP x 0.014 x size factor) mSv CTDIvol has been reviewed. It is below the limits set by the Radiation Protocol Committee (RPC). Dose modulation, iterative reconstruction, and/or weight based adjustment of the mA/kV was utilized to reduce the radiation dose to as low as reasonably achievable. FINDINGS: LINES/ TUBES: None. LUNGS AND AIRWAYS: No pulmonary arterial filling defects. 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 Airways are normal. PLEURA: The pleural spaces are clear. HEART AND MEDIASTINUM: The thyroid gland is normal. No mediastinal, hilar or axillary lymphadenopathy. The heart is normal in size. There is no pericardial effusion. Calcifications of the aorta and major branches including the coronary arteries. Normal main pulmonary artery diameter. UPPER ABDOMEN: Cholecystectomy clips. Hypodense liver. BONES: Degenerative changes. SOFT TISSUES: Unremarkable. IMPRESSION: No pulmonary emboli. Triple vessel coronary artery calcific atherosclerosis. Hepatic steatosis. 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: Interpreted by ED physician Date: Jun 06, 2020 Time: 21:38 Rhythm: sinus tachycardia Rate: tachycardia BPM: 107 QRS axis: left ST segments normal: Yes T waves flattening: V1, V2, V3 Other findings: no other findings Clinical Impression: abnormal ECG Assessment & Plan Medical Decision Making MDM CBC, CMP, EKG, CT CHEST, CARDIAC ENZYMES ORDERED TO EVAL FOR MYOCARDIAL INFARCTION, PULMONARY EMBOLISM, PULMONARY EDEMA, ELECTROLYTE ABNORMALITY I SPOKE WITH DR EDUARDO DO CT CHEST RULE OUT PE, IF NEGATIVE D/C HOME AND HAVE PT FOLLOW UP IN OFFICE Assessment & Plan Final Impression: (1) HTN (hypertension) (2) Palpitations Depart Disposition: HOME, SELF-CARE Last Vital Signs Date Time Temp Pulse Resp B/P (MAP) Pulse Ox O2 Delivery O2 Flow Rate FiO2 06/06/20 21:10 102 20 149/95 96 Room Air Home Meds Reported Medications Cyanocobalamin (VITAMIN B-12) 1,000 Mcg Tab, 1000 MCG PO DAILY, #30 TAB 06/02/20 [Vitamin D3] No Conflict Check, 2000 UNITS PO DAILY 06/02/20 Pioglitazone Hcl (PIOGLITAZONE HCL) 45 Mg Tablet, 45 MG PO DAILY, #30 TAB 06/02/20 Dapagliflozin/Metformin HCl (Xigduo Xr 5 mg-1,000 mg Tablet) 1 Each Tab.bp.24h, 1 TAB PO BID 06/02/20 Aspirin (ASPIR 81) 81 Mg Tablet.dr, 81 MG PO DAILY 05/29/18 Fluoxetine Hcl (FLUOXETINE HCL) 20 Mg Capsule, 20 MG PO DAILY, #30 CAP 05/29/18 Atorvastatin Calcium (ATORVASTATIN CALCIUM) 20 Mg Tablet, 20 MG PO DAILY, #30 TAB 05/29/18 Amlodipine Besylate/Benazepril (AMLODIPINE-BENAZEPRIL 5-40 MG) 1 Each Capsule, 1 CAP PO DAILY 05/29/18 Discontinued Reported Medications [Actos] No Conflict Check, 30 MG PO DAILY 05/24/18 [Xigduo] 5MG/1000MG No Conflict Check, 1 TAB PO DAILY 05/24/18 WILLA BAIRD MD Jun 06, 2020 22:08
[2020-06-06 22:26] LABS: BASOPHILS # (AUTO) 0.1 (0.0-0.1); BASOPHILS % 0.6 % (0.0-1.0); EOSINOPHILS # (AUTO) 0.2 (0.0-0.4); EOSINOPHILS % 1.5 % (0.0-6.0); HEMATOCRIT 47.7 % (38.2-49.6); HEMOGLOBIN 15.7 g/dL (14.0-18.0); LYMPHOCYTES # (AUTO) 2.5 (1.0-3.2); LYMPHOCYTES % 25.4 % (18.0-39.1); MEAN CORPUSCULAR HEMOGLOBIN 29.6 pg (28-32); MEAN CORPUSCULAR HGB CONC 32.9 g/dL (31-35); MONOCYTES # (AUTO) 0.9 (0.2-0.8); MONOCYTES % 8.8 % (4.4-11.3); NEUTROPHILS # (AUTO) 6.3 (2.1-6.9); NEUTROPHILS % 63.3 % (38.7-80.0); PLATELET COUNT 220 x10e3/uL (140-360); RED CELL DISTRIBUTION WIDTH 13.2 % (11.7-14.4)
[2020-06-06 22:40] LABS: ALANINE AMINOTRANSFERASE 30 IU/L (0-55); ALBUMIN 4.3 g/dL (3.5-5.0); ALBUMIN/GLOBULIN RATIO 1.5 (0.8-2.0); ALKALINE PHOSPHATASE 50 IU/L (40-150); ANION GAP 18.1 mmol/L (8-16); BLOOD UREA NITROGEN 15 mg/dL (7-26); BUN/CREATININE RATIO 14 (6-25); CALCIUM 9.7 mg/dL (8.4-10.2); CARBON DIOXIDE 26 mmol/L (22-29); CHLORIDE 103 mmol/L (98-107); CREATINE KINASE 74 IU/L (30-200); EST GLOMERULAR FILTRATION RATE > 60 ML/MIN (60-); GLUCOSE 210 mg/dL (74-118); POTASSIUM 4.1 mmol/L (3.5-5.1); SODIUM 143 mmol/L (136-145)
[2020-06-06] MEDS ORDERED: IOPAMIDOL 370 MG/ML 200 ML INFUS..BTL INJ ONE (23:54)
[2020-06-06] MEDS ORDERED: SODIUM CHLORIDE 0.9% 50ML 50 ML ONE (23:55)
--- NOTE | 2020-06-07 00:27 | Diagnostic Imaging Report ---
EXAM: CT Chest WITH contrast 06/06/2020 11:15 PM INDICATION: Tachycardia, elevated blood pressure ^PE PROTOCOL ^[id number] ^2315 ^Y COMPARISON: None TECHNIQUE: Chest was scanned utilizing a multidetector helical scanner from the lung apex through the level of the diaphragm after administration of IV contrast. Thin section reconstructions were obtained with special concentration on the pulmonary arteries. Coronal and sagittal reformations were obtained. Pulmonary embolism protocol was performed. IV CONTRAST: 100 mL of Isovue 370 COMPLICATIONS: None RADIATION DOSE: Total DLP: 611 mGy*cm Estimated effective dose: (DLP x 0.014 x size factor) mSv CTDIvol has been reviewed. It is below the limits set by the Radiation Protocol Committee (RPC). Dose modulation, iterative reconstruction, and/or weight based adjustment of the mA/kV was utilized to reduce the radiation dose to as low as reasonably achievable. FINDINGS: LINES/ TUBES: None. LUNGS AND AIRWAYS: No pulmonary arterial filling defects. 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 Airways are normal. PLEURA: The pleural spaces are clear. HEART AND MEDIASTINUM: The thyroid gland is normal. No mediastinal, hilar or axillary lymphadenopathy. The heart is normal in size. There is no pericardial effusion. Calcifications of the aorta and major branches including the coronary arteries. Normal main pulmonary artery diameter. UPPER ABDOMEN: Cholecystectomy clips. Hypodense liver. BONES: Degenerative changes. SOFT TISSUES: Unremarkable. IMPRESSION: No pulmonary emboli. Triple vessel coronary artery calcific atherosclerosis. Hepatic steatosis. 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 Signed by: Paul Juarez DO on 06/07/2020 12:23 AM
[2020-06-07 01:18] VITALS: BP 144/97
== END 2020-06-07 01:10 | disposition home or self-care (01) ==
LOC: ER 21:17
DX: I10 Essential (primary) hypertension (principal); R00.2 Palpitations; R94.31 Abnormal electrocardiogram [ECG] [EKG]; I25.10 Atherosclerotic heart disease of native coronary artery without angina pectoris; Z95.5 Presence of coronary angioplasty implant and graft
CPT/HCPCS: 36415; 71260; 80053; 82550; 82553; 84484; 85025; 93005; 99284; Q9967

== ENCOUNTER → 2022-07-27 | Day surgery (SDC) | payer MEDICARE ==
[2022-07-23 09:35] LABS: BASOPHILS # (AUTO) 0.1 (0.0-0.1); BASOPHILS % 0.9 % (0.0-1.0); EOSINOPHILS # (AUTO) 0.1 (0.0-0.4); EOSINOPHILS % 1.5 % (0.0-6.0); HEMATOCRIT 51.7 % (38.2-49.6); HEMOGLOBIN 15.8 g/dL (14.0-18.0); LYMPHOCYTES % 36.5 % (18.0-39.1); MEAN CORPUSCULAR HEMOGLOBIN 29.2 pg (28-32); MEAN CORPUSCULAR HGB CONC 30.6 g/dL (31-35); MEAN CORPUSCULAR VOLUME 95.6 fL (81-99); MONOCYTES # (AUTO) 0.6 (0.2-0.8); MONOCYTES % 7.1 % (4.4-11.3); NEUTROPHILS # (AUTO) 4.4 (2.1-6.9); NEUTROPHILS % 53.6 % (38.7-80.0); PLATELET COUNT 254 x10e3/uL (140-360); RED BLOOD COUNT 5.41 x10e6/uL (4.3-5.7); RED CELL DISTRIBUTION WIDTH 13.4 % (11.7-14.4)
[2022-07-23 09:52] LABS: ALBUMIN 4.1 g/dL (3.5-5.0); ALBUMIN/GLOBULIN RATIO 1.3 (0.8-2.0); ANION GAP 16.3 mmol/L (8-16); CALCIUM 9.7 mg/dL (8.4-10.2); CHOL/HDL RATIO 2.7 (3.9-4.7); POTASSIUM 4.3 mmol/L (3.5-5.1)
[2022-07-27] VITALS (10 sets, daily range): BP systolic 122–143; BP diastolic 81–97
[~2022-07-27] VITALS: Ht 182.9 cm; Wt 88.5 kg
[~2022-07-27] MED LIST changes: +FENTANYL CITRATE/PF 100MCG/2 ML INJ ONE; +HEPARIN SOD (PORCINE) 1000 UNIT/ML 30ML ONE; +HEPARIN SOD/SOD CHLORIDE 2,000 ML ONE; +IOPAMIDOL 370 MG/ML 100 ML INFUS..BTL INJ ONE; +LIDOCAINE HCL 2% LOCAL 20 ML VIAL ONE; +METOPROLOL SUCC25 MG PO; +MIDAZOLAM HCL 2 MG/2 ML VIAL ONE; +NITROGLYCERIN/D5W 200 MCG/ML 250 ML ONE; +OZEMPIC0.25 MG/0. SC; +SODIUM CHLORIDE 0.9% 1000ML 1,000 ML ONE; +VERAPAMIL HCL 2.5 MG/ML 2 ML VIAL ONE
== END | disposition home or self-care (01) ==
LOC: CATH LAB 11:30
PROVIDERS: ATTEND Internal Medicine Interventional Cardiology
DX: I25.110 Atherosclerotic heart disease of native coronary artery with unstable angina pectoris (principal); R94.39 Abnormal result of other cardiovascular function study; I10 Essential (primary) hypertension; E78.00 Pure hypercholesterolemia, unspecified; E13.9 Other specified diabetes mellitus without complications; E66.9 Obesity, unspecified; Z71.82 Exercise counseling; Z71.3 Dietary counseling and surveillance; Z79.899 Other long term (current) drug therapy; Z79.82 Long term (current) use of aspirin; Z82.49 Family history of ischemic heart disease and other diseases of the circulatory system; Z83.3 Family history of diabetes mellitus
CPT/HCPCS: 36415; 80053; 80061; 83880; 85025; 93458; C1887; J1644; J2001; J2250; J3010; J7030; Q9967; 99152; 99153

== ENCOUNTER → 2025-03-15 | Outpatient (REF) | payer MEDICARE ==
[~2025-03-15] MED LIST changes: +COREG12.5 MG PO; +CRESTOR10 MG PO; -FENTANYL CITRATE/PF 100MCG/2 ML INJ ONE; -HEPARIN SOD (PORCINE) 1000 UNIT/ML 30ML ONE; -HEPARIN SOD/SOD CHLORIDE 2,000 ML ONE; -IOPAMIDOL 370 MG/ML 100 ML INFUS..BTL INJ ONE; -LIDOCAINE HCL 2% LOCAL 20 ML VIAL ONE; -MIDAZOLAM HCL 2 MG/2 ML VIAL ONE; -NITROGLYCERIN/D5W 200 MCG/ML 250 ML ONE; -SODIUM CHLORIDE 0.9% 1000ML 1,000 ML ONE; -VERAPAMIL HCL 2.5 MG/ML 2 ML VIAL ONE
== END ==
LOC: US 12:50
PROVIDERS: ATTEND Internal Medicine
DX: I86.1 Scrotal varices (principal); N43.3 Hydrocele, unspecified
CPT/HCPCS: 76870; 93976

== ENCOUNTER → 2025-04-17 | Day surgery (SDC) | payer MEDICARE ==
[2025-04-10 09:25] LABS: BASOPHILS % 1.1 % (0.0-1.0); EOSINOPHILS % 1.8 % (0.0-6.0); LYMPHOCYTES % 38.5 % (18.0-39.1); MONOCYTES % 7.8 % (4.4-11.3); NEUTROPHILS % 50.7 % (38.7-80.0); RED CELL DISTRIBUTION WIDTH 13.0 % (11.7-14.4)
[2025-04-10 09:51] LABS: EST GLOMERULAR FILTRATION RATE 81.0 ML/MIN (>=60)
[~2025-04-17] MED LIST changes: +ACETAMINOPHEN 1000 MG/100 ML 100 ML IV ONE; +DEXAMETHASONE SOD PHOS INJ 4 MG/ML SDV ONE; +EPHEDRINE SULFATE INJ 50 MG/ML VIAL ONE; +FENTANYL CITRATE/PF 100MCG/2 ML INJ ONE; +HYDROCODONE/APAP 7.5MG-325MG 1 EA TAB ONE; +LACTATED RINGER'S 1,000 ML ONE; +LIDOCAINE HCL 2% LOCAL INJ 5 ML SDV VIAL INJ ONE; +MIDAZOLAM HCL 2 MG/2 ML VIAL ONE; +OMEGA 3 1,0001 EACH PO; +ONDANSETRON HCL INJ 2MG/ML 2ML 2 MG/ML VIAL ONE; +PHENYLEPHRINE HCL 1% 10 MG/ML VIAL ONE; +PROPOFOL IV EMULSION 10 MG/ML 20 ML VIAL ONE; +ROCURONIUM BROMIDE 1 ML IV ONE; +SODIUM CHLORIDE 0.9% INJ 10 ML VIAL ONE; +SUCCINYLCHOLINE CHLORIDE 20 MG/ML 10ML VIAL ONE; +SUGAMMADEX SODIUM 200 MG/2 ML VIAL IV ONE
[2025-04-17 11:15] VITALS: TEMP 97
[2025-04-17] MEDS: HYDROCODONE/APAP 7.5MG-325MG 1 EA TAB PO ONE (11:43)
[2025-04-17 12:35] VITALS: BP 144/95; PULSE 74; RESP 17; O2SAT 99
== END | disposition home or self-care (01) ==
LOC: OR 06:05
PROVIDERS: ATTEND Surgery
DX: K40.90 Unilateral inguinal hernia, without obstruction or gangrene, not specified as recurrent (principal); E11.9 Type 2 diabetes mellitus without complications; I10 Essential (primary) hypertension; E78.5 Hyperlipidemia, unspecified; I25.10 Atherosclerotic heart disease of native coronary artery without angina pectoris; Z01.810 Encounter for preprocedural cardiovascular examination; Z01.812 Encounter for preprocedural laboratory examination; Z01.818 Encounter for other preprocedural examination; Z79.82 Long term (current) use of aspirin; Z79.84 Long term (current) use of oral hypoglycemic drugs; Z79.85 Long-term (current) use of injectable non-insulin antidiabetic drugs; Z79.899 Other long term (current) drug therapy; Z98.61 Coronary angioplasty status
CPT/HCPCS: 36415 ×2; 49525; 71046; 80048; 82948; 85025; 93005; C1781; J0131; J0330; J0690; J1100; J2003; J2250; J2371; J2405; J2704; J3010; J7121